=== PATIENT | male | born 1965 | race African-American/Black ===

== ENCOUNTER 2016-08-05 12:26 | Emergency (ER) | payer SELFPAY ==
[~2016-08-05] VITALS: Ht 190.5 cm; Wt 99.8 kg
--- NOTE | 2016-08-05 12:30 | NUR ---
PT BIBRA FROM A [employer]. PT IS C/O RT HIP PAIN S/P STEPPED ON A CURB WRONG AND TWISTED OUTWARDS. PT STATES FEELS SORE BUT THINK HE DID NOT BREAK ANYTHING AND FEELS LIKE STRUCTURE IS OK. PT HAD HIP REPLACEMENT A YEAR AGO. NO OBVIOUS DEFORMITY NOTED. AWAITING MD CRESOP.
--- NOTE | 2016-08-05 12:36 | NUR ---
CHANDU WALTON AT BEDSIDE FOR EVAL.
[2016-08-05] MEDS ORDERED: HYDROCODONE/APAP 10/325MG 1 EA TABLET ONE (12:38)
[2016-08-05] MEDS ORDERED: IBUPROFEN 600 MG TABLET PO ONE ×2 (12:38→13:00)
--- NOTE | 2016-08-05 12:45 | NUR ---
MEDICATED ORDERED. SEE EMAR.
[2016-08-05] MEDS ORDERED: HYDROCODONE/APAP 10/325MG 1 EA TABLET PO ONE (13:00)
--- NOTE | 2016-08-05 13:17 | NUR ---
Patient discharged to home in stable condition. Written and verbal after care instructions given. Patient verbalizes understanding of instruction.
[2016-08-05 13:21] VITALS: BP 132/76
== END 2016-08-05 13:22 | disposition home or self-care (01) ==
LOC: ER 12:29
DX: S76.011A Strain of muscle, fascia and tendon of right hip, initial encounter (principal); H54.0 Blindness, both eyes; F11.20 Opioid dependence, uncomplicated; F25.9 Schizoaffective disorder, unspecified; F17.200 Nicotine dependence, unspecified, uncomplicated; F32.9 Major depressive disorder, single episode, unspecified; Z88.0 Allergy status to penicillin; Z88.8 Allergy status to other drugs, medicaments and biological substances
CPT/HCPCS: A4606; Z7610

== ENCOUNTER 2017-04-04 11:33 | Emergency (ER) | payer MEDICARE, OTHER ==
[~2017-04-04] VITALS: Ht 190.5 cm; Wt 114.8 kg
--- NOTE | 2017-04-04 11:38 | NUR ---
PT BIBRA FROM A BUS STOP C/O HEADACHE AND BILAT HIP PAIN FOR THE PAST 4 DAYS. PT DENIES TRAUMA. STABLE VITAL. NO OTHER COMPLAINT. AWAITING MD CRESPO.
--- NOTE | 2017-04-04 11:46 | NUR ---
DR DRISCOLL AT BEDSIDE FOR EVAL.
[2017-04-04] MEDS ORDERED: diphenhydrAMINE HCL 50 MG/ML VIAL ONE (11:53)
--- NOTE | 2017-04-04 11:54 | NUR ---
RADIOLOGY AT BEDSIDE FOR PELVIC XRAY.
[2017-04-04] MEDS ORDERED: diphenhydrAMINE HCL 50 MG/ML VIAL IM ONE (12:00)
[2017-04-04] MEDS ORDERED: HYDROMORPHONE INJ 2 MG/ML DISP.SYRIN IM ONE ×2 (12:00→12:30)
--- NOTE | 2017-04-04 13:53 | NUR ---
AMBULATORY USING A CANE. D/C HOME W/ TAXI VOUCHER. STABLE CONDITION.
--- NOTE | 2017-04-04 13:53 | NUR ---
Aneudy guzman in [facility] - 04/04/17 at 1357 by [facility] AMBULATORY USING A CANE. D/C HOME W/ TAXI VOUCHER. STABLE CONDITION.
[2017-04-04 13:58] VITALS: BP 134/87
== END 2017-04-04 14:00 | disposition home or self-care (01) ==
LOC: ER 11:35
DX: M25.551 Pain in right hip (principal); M25.552 Pain in left hip; G89.4 Chronic pain syndrome; I10 Essential (primary) hypertension; J44.9 Chronic obstructive pulmonary disease, unspecified; F17.200 Nicotine dependence, unspecified, uncomplicated; Z88.0 Allergy status to penicillin; Z96.643 Presence of artificial hip joint, bilateral; G43.909 Migraine, unspecified, not intractable, without status migrainosus; Z88.6 Allergy status to analgesic agent; Z88.8 Allergy status to other drugs, medicaments and biological substances
CPT/HCPCS: 72170; 96372 ×3; 99284; A4606; J1170 ×2; J1200; Z7610

== ENCOUNTER 2017-09-04 11:50 | Emergency (ER) | payer MEDICARE, OTHER ==
[~2017-09-04] VITALS: Ht 190.5 cm; Wt 114.3 kg
[2017-09-04 11:50] VITALS: BP 137/88
--- NOTE | 2017-09-04 12:21 | NUR ---
artie nuclear medicine officer at bedside for eval.
[2017-09-04] MEDS ORDERED: HYDROMORPHONE INJ 2 MG/ML DISP.SYRIN ONE ×2 (12:27→13:26)
[2017-09-04] MEDS ORDERED: diphenhydrAMINE HCL 50 MG/ML VIAL ONE (12:27)
[2017-09-04] MEDS ORDERED: HYDROMORPHONE INJ 2 MG/ML DISP.SYRIN IM ONE (12:30)
[2017-09-04] MEDS ORDERED: diphenhydrAMINE HCL 50 MG/ML VIAL IM ONE (12:30)
--- NOTE | 2017-09-04 12:49 | NUR ---
radiology at bedside for hip xray.
[2017-09-04] MEDS ORDERED: HYDROCHLOROTHIAZIDE 25 MG (13:19)
[2017-09-04] MEDS ORDERED: HYDROCO/APAP TAB 10-325MG (13:19)
[2017-09-04] MEDS ORDERED: CARISOPRODOL 350MG TABLETS (13:19)
[2017-09-04] MEDS ORDERED: OXYCODONE 30 MG (13:19)
[2017-09-04] MEDS ORDERED: AMLODIPINE BESYLATE 10MG TABLE (13:19)
[2017-09-04] MEDS ORDERED: HYDROMORPHONE 1 MG/1 ML DISP.SYRIN IM ONE (13:30)
--- NOTE | 2017-09-04 14:26 | NUR ---
PT PROVIDED W/ TAXI VOUCHER. D/C HOME IN STABLE CONDITION.
== END 2017-09-04 14:27 | disposition home or self-care (01) ==
LOC: ER 11:51
DX: S39.012A Strain of muscle, fascia and tendon of lower back, initial encounter (principal); S79.811A Other specified injuries of right hip, initial encounter; G43.909 Migraine, unspecified, not intractable, without status migrainosus; G89.4 Chronic pain syndrome; I10 Essential (primary) hypertension; J44.9 Chronic obstructive pulmonary disease, unspecified; F25.1 Schizoaffective disorder, depressive type; F17.200 Nicotine dependence, unspecified, uncomplicated; Z60.2 Problems related to living alone; Z88.0 Allergy status to penicillin; Z98.890 Other specified postprocedural states; Z88.8 Allergy status to other drugs, medicaments and biological substances; X50.1XXA Overexertion from prolonged static or awkward postures, initial encounter; Y93.01 Activity, walking, marching and hiking; Y92.89 Other specified places as the place of occurrence of the external cause; Y99.8 Other external cause status
CPT/HCPCS: 73502; A4606; J1170; J1200; Z7610

== ENCOUNTER 2017-11-22 13:07 | Emergency (ER) | payer MEDICARE, OTHER ==
[~2017-11-22] VITALS: Ht 182.9 cm; Wt 88.5 kg
[~2017-11-22 13:07] MED LIST: AMLODIPINE BESYLATE 10MG TABLE; CARISOPRODOL 350MG TABLETS; HYDROCHLOROTHIAZIDE 25 MG; HYDROCO/APAP TAB 10-325MG; OXYCODONE 30 MG
[2017-11-22] MEDS ORDERED: IBUPROFEN 600 MG TABLET PO ONE ×2 (13:30→13:44)
[2017-11-22 14:22] VITALS: BP 128/78
== END 2017-11-22 14:23 | disposition home or self-care (01) ==
LOC: ER 13:13
DX: M25.551 Pain in right hip (principal); M25.552 Pain in left hip; G89.29 Other chronic pain; G43.909 Migraine, unspecified, not intractable, without status migrainosus; J44.9 Chronic obstructive pulmonary disease, unspecified; I10 Essential (primary) hypertension; F25.9 Schizoaffective disorder, unspecified; F32.9 Major depressive disorder, single episode, unspecified; F17.200 Nicotine dependence, unspecified, uncomplicated; Z98.890 Other specified postprocedural states; Z88.0 Allergy status to penicillin; Z88.5 Allergy status to narcotic agent; Z88.8 Allergy status to other drugs, medicaments and biological substances; Z60.2 Problems related to living alone
CPT/HCPCS: 99283; A4606; Z7610

== ENCOUNTER 2018-03-30 13:13 | Emergency (ER) | payer MEDICARE, OTHER ==
[~2018-03-30] VITALS: Ht 190.5 cm; Wt 113.4 kg
--- NOTE | 2018-03-30 13:15 | NUR ---
AAOX3, BIBRA 860 C/O BILATERAL CHRONIC HIP PAIN, DENIES RECENT FALL OR INJURY. NO ACUTE DISTRESS NOTED. SKIN IS WARM AND DRY. AWAITING MD FOR EVAL.
--- NOTE | 2018-03-30 13:49 | NUR ---
CALLED KRZYSZTOF TO HELP [phone]
--- NOTE | 2018-03-30 14:00 | NUR ---
KRZYSZTOF, ELECTION JUDGE AT FOR EVAL.
[2018-03-30] MEDS ORDERED: HYDROCODONE/APAP 5/325MG 1 EACH TABLET ONE (14:03)
[2018-03-30] MEDS: HYDROCODONE/APAP 5/325MG 1 EACH TABLET PO ONE (14:07)
[2018-03-30] MEDS: diphenhydrAMINE HCL 50 MG/ML VIAL IM ONE (14:07)
--- NOTE | 2018-03-30 14:19 | NUR ---
KLAUS received a call from Nba in ED requesting for KLAUS to assist the pt. Pt. is a 53 year old male came to [facility] ED complaining of hip pain. KLAUS met with pt. bedside. Pt. is alert and oriented x 4. Pt. is legally blind and states he resides with his brother at [address], [place] [address]. Pt. states he would like a ride back home. KLAUS inquired with pt. how did he get to [email or web address]], and pt. stated, " I came to visit a friend and go a ride." KLAUS informed pt. she will get a taxi voucher for pt. to be transported back home. Pt. confirmed with KLAUS that he did have a choi to his house. No other social service needs are requested at this time. KLAUS got a taxi voucher from nursing parking lot supervisor Clara and gave it to Nba in ER. KLAUS updated RN Wilfred regarding taxi transportation for the pt.
--- NOTE | 2018-03-30 15:35 | NUR ---
PT GIVEN TAXI VOUCHER AND JUICE. Patient discharged to home in stable condition. Written and verbal after care instructions given. Patient verbalizes understanding of instruction.
[2018-03-30 15:41] VITALS: BP 145/87
== END 2018-03-30 15:42 | disposition home or self-care (01) ==
LOC: ER 13:18
DX: G89.29 Other chronic pain (principal); M25.552 Pain in left hip; M25.551 Pain in right hip; H54.8 Legal blindness, as defined in USA; F25.9 Schizoaffective disorder, unspecified; J44.9 Chronic obstructive pulmonary disease, unspecified; I10 Essential (primary) hypertension; F32.9 Major depressive disorder, single episode, unspecified; F17.200 Nicotine dependence, unspecified, uncomplicated; Z76.5 Malingerer [conscious simulation]; Z60.2 Problems related to living alone; Z98.890 Other specified postprocedural states; Z88.0 Allergy status to penicillin; Z88.6 Allergy status to analgesic agent; Z88.8 Allergy status to other drugs, medicaments and biological substances; Z88.9 Allergy status to unspecified drugs, medicaments and biological substances

== ENCOUNTER 2019-01-18 18:36 | Inpatient (IN) | payer MEDICARE, OTHER ==
[~2019-01-18] VITALS: Ht 190.5 cm; Wt 112.9 kg
--- NOTE | 2019-01-18 18:55 | NUR ---
PT [facility]842 FROM [facility] FOR RLE PAIN, S/P GLF. +DEFORMITY NOTED. PT STATES HE GOT DIZZY AND FELL. PT AAOX4, VSS, BREATHING EVEN AND UNLABORED ON ROOM AIR W/ NAD. PT CONNECTED TO THE MONITOR AND POX.
[2019-01-18] MEDS ORDERED: HYDROMORPHONE 1 MG/1 ML DISP.SYRIN ONE ×3 (19:25→21:35)
[2019-01-18] MEDS ORDERED: HYDROMORPHONE INJ 0.5 MG/0.5 ML SYRINGE IM ONE ×2 (19:30→20:00)
--- NOTE | 2019-01-18 20:25 | NUR ---
CALLED [employer]. TOBACCO PACKER WAS PAGED.
--- NOTE | 2019-01-18 20:26 | NUR ---
CALLED HOUSE SUP FOR MS BED
[2019-01-18 20:38] LABS: BASOPHILS % (AUTO) 0.3 % (0.0-2.0); EOSINOPHILS % (AUTO) 0.4 % (0.0-6.0); HEMATOCRIT 52 % (39-51); HEMOGLOBIN 17.6 g/dL (13.5-17.5); LYMPHOCYTES # (AUTO) 1.4 /CMM (0.8-4.8); LYMPHOCYTES % (AUTO) 20.2 % (20.0-44.0); MEAN CORPUSCULAR HGB CONC 34 g/dl (31.0-36.0); MEAN CORPUSCULAR VOLUME 91 fL (80-96); MONOCYTES # (AUTO) 0.5 /CMM (0.1-1.30); MONOCYTES % (AUTO) 7.7 % (2.0-12.0); NEUTROPHILS # (AUTO) 4.8 /CMM (1.8-8.9); NEUTROPHILS % (AUTO) 71.4 % (43.0-81.0); PLATELET COUNT (AUTO) 173 /CMM (150-450); RED BLOOD CELL COUNT(AUTO) 5.76 MIL/uL (4.5-6.0); WHITE BLOOD COUNT (AUTO) 6.8 K/uL (4.3-11.0)
--- NOTE | 2019-01-18 21:02 | NUR ---
CALLED HOUSE SUP TO PAGE MIDLINE RN
--- NOTE | 2019-01-18 21:17 | NUR ---
MS [id number]
[2019-01-18 21:19] LABS: CALCIUM, SERUM 9.5 mg/dL (8.5-10.1); CREATININE 1.2 mg/dL (0.6-1.3); POTASSIUM 3.7 mmol/L (3.5-5.1)
[2019-01-18] MEDS ORDERED: CLONIDINE HCL 0.1 MG TABLET PO PRN (21:30)
[2019-01-18] MEDS ORDERED: HYDROCODONE/APAP 5/325MG 1 EACH TABLET PO PRN (21:30)
[2019-01-18] MEDS ORDERED: ACETAMINOPHEN 325 MG TABLET PO PRN (21:30)
[2019-01-18] MEDS ORDERED: MAG HYDROX/AL HYDROX/SIMETH 30 ML UDC PO PRN (21:30)
[2019-01-18] MEDS ORDERED: HYDROMORPHONE INJ 0.5 MG/0.5 ML SYRINGE IV ONE (21:30)
[2019-01-18] MEDS ORDERED: Z GUARD REMEDY 2 OZ OINT TP PRN (21:30)
[2019-01-18] MEDS ORDERED: MAGNESIUM HYDROXIDE 30 ML UDC PO PRN (21:30)
[2019-01-18] MEDS ORDERED: ONDANSETRON HCL/PF 4 MG/2 ML VIAL IVP PRN (21:30)
[2019-01-18] MEDS ORDERED: MORPHINE SULFATE INJ 2 MG/ML DISP.SYRIN IV PRN (21:30)
--- NOTE | 2019-01-18 21:40 | NUR ---
REPORT GIVEN TO ANDRZEJ MUNROE
[2019-01-18 21:50] VITALS: BP 140/79
--- NOTE | 2019-01-18 21:55 | NUR ---
MS RECORDS ADMINISTRATOR NOTES PATIENT CAME TO UNIT FROM ER VIA GURNEY. PATIENT IS ALERT AND ORIENTED. BREATHING EVEN AND UNLABORED. C/O R) ANKLE/LEG PAIN, 8. PATIENT HAS NO IV ACCESS, AWAITING FOR MIDLINE NURSE. ORIENTED TO CALL LIGHT, PLACE WITHIN EASY REACH. BED IN LOWEST, LOCKED POSITION, BED ALARM ON. ENCOURAGED TO CALL FOR ASSISTANCE. BELONGINGS CHECKED BY KARLI HALL. HOME MEDICATIONS PUT IN, DR. KERNS INFORMED FOR MED RECONCILIATION. WILL CONTINUE TO MONITOR ACCORDINGLY
[2019-01-18] MEDS ORDERED: DIVA500T2 PO (22:09)
[2019-01-18] MEDS ORDERED: ALPR2TAB2 PO (22:11)
[2019-01-18] MEDS ORDERED: QUET400T PO (22:11)
[2019-01-18] MEDS ORDERED: DIPH-530 PO (22:13)
[2019-01-18] MEDS ORDERED: OXYC30TA2 PO (22:13)
[2019-01-18] MEDS ORDERED: TEMA30CA5 PO (22:13)
--- NOTE | 2019-01-18 22:28 | NUR ---
RN NOTES TELEPHONE ORDER RECEIVED FROM DR. KERNS. PATIENT IS REGULAR DIET FOR NOW, NPO POST MIDNIGHT. NOTED AND CARRIED OUT
--- NOTE | 2019-01-18 22:33 | NUR ---
RN NOTES CALLED NURSING WATER ANALYST DIALLO GASCA MIDLINE PLACEMENT. PER WATER ANALYST, MIDLINERS DID NOT REPLY YET.
--- NOTE | 2019-01-18 22:43 | NUR ---
RN NOTES NURSING WASTE HANDLING TECHNICIAN CALLED. MIDLINE RN WILL BE HERE IN AN HOUR
--- NOTE | 2019-01-19 00:09 | NUR ---
RN NOTES PATIENT STILL C/O PAIN ON R) ANKLE. DR. KERNS MADE AWARE. RECEIVED A TELEPHONE ORDER OF DILAUDID 1MG IM X 1. NOTED AND CARRIED OUT
[2019-01-19] MEDS ORDERED: HYDROMORPHONE INJ 0.5 MG/0.5 ML SYRINGE IM ONE (00:30)
[2019-01-19] MEDS ORDERED: HYDROMORPHONE 1 MG/1 ML DISP.SYRIN IM ONE ×2 (00:30→05:30)
--- NOTE | 2019-01-19 00:53 | NUR ---
RN NOTES PATIENT STATED [facility] 2 DAYS A[facility]. PER [facility] PROTOCOL, REFER PATIENT FOR PSYCH CONSULT. DR. KERNS INFORMED. RECEIVED ORDER FOR PSYCH CONSULT. ORDERS NOTED AND CARRIED OUT. FACE SHEET FAXED TO [employer]
--- NOTE | 2019-01-19 05:23 | NUR ---
RN NOTES PATIENT C/O AGAIN OF R) ANKLE PAIN, 11/17. PATIENT REQUESTING FOR DILAUDID. DR. KERNS INFORMED. TELEPHONE ORDER RECEIVED OF DILAUDID 1MG IM X 1. DIET ORDER ALSO CLARIFIED: NPO EXCEPT MEDS. NOTED AND CARRIED OUT.
--- NOTE | 2019-01-19 06:56 | NUR ---
MS RN CLOSING NOTES PATIENT RESTING IN BED. NO COMPLAINTS OF PAIN AT THIS TIME. ALL NEEDS ATTENDED. STILL WAITING MIDLINE INSERTION. NO ACUTE CHANGES OVERNIGHT. SAFETY MEASURES IN PLACE. CALL LIGHT WITHIN REACH. BED IN LOW, LOCKED POSITION. WILL ENDORSE ELYSE TO ONCOMING RN
--- NOTE | 2019-01-19 07:10 | NUR ---
RN OPENING NOTES RECEIVED PATIENT IN BED RESTING. A/OX3, ABLE TO MAKE NEEDS KNOWN. PATIENT IS LEGALLY BLIND. NOT IN ANY FORM OF DISTRESS. NO SOB, TOLERATING ROOM AIR. COMPLAINTS OF PAIN ON RIGHT ANKLE, MEDICATED AN HOUR AGO PER PATIENT, WILL GIVE PAIN MEDS ORDERED. NO IV ACCESS AT THIS TIME, AWAITING FOR MIDLINE INSERTION. KEPT PATIENT SAFE AND COMFORTABLE. BED IN LOW/LOCKED POSITION, SIDRAILS UPX2, BED ALARM ON, CALL LIGHT IN REACH. WILL CONTINUE TO MONIOTR ACCORDINGLY
[2019-01-19 07:50] VITALS: BP 126/73
[2019-01-19] MEDS: DIVALPROEX SODIUM 500 MG TABLET.DR PO SCH (08:34)
[2019-01-19] MEDS: ALPRAZOLAM 1 MG TABLET PO SCH ×3 (08:34→17:24)
[2019-01-19] MEDS: AMLODIPINE BESYLATE 5 MG TABLET PO SCH (08:36)
[2019-01-19] MEDS ORDERED: HYDROCHLOROTHIAZIDE 25 MG TABLET PO SCH (09:00)
[2019-01-19] MEDS ORDERED: MORPHINE SULFATE INJ 2 MG/ML DISP.SYRIN IM PRN (09:30)
[2019-01-19] MEDS: oxyCODONE IR immediate release 5 MG PO PRN ×2 (10:13→18:24)
[2019-01-19] MEDS: diphenhydrAMINE HCL 50 MG CAPSULE PO SCH ×2 (12:29→18:20)
[2019-01-19] MEDS: MORPHINE SULFATE INJ 2 MG/ML DISP.SYRIN IM PRN ×2 (12:33→17:30)
[2019-01-19] MEDS: IV NS 0.9% 1,000 ML IV PRN (14:11)
[2019-01-19 14:33] LABS: BASOPHILS % (AUTO) 0.3 % (0.0-2.0); EOSINOPHILS % (AUTO) 2.3 % (0.0-6.0); HEMATOCRIT 48 % (39-51); HEMOGLOBIN 16.1 g/dL (13.5-17.5); LYMPHOCYTES % (AUTO) 41.6 % (20.0-44.0); MEAN CORPUSCULAR HGB CONC 34 g/dl (31.0-36.0); MEAN CORPUSCULAR VOLUME 91 fL (80-96); MONOCYTES % (AUTO) 13.5 % (2.0-12.0); NEUTROPHILS # (AUTO) 3.1 /CMM (1.8-8.9); NEUTROPHILS % (AUTO) 42.3 % (43.0-81.0); PLATELET COUNT (AUTO) 162 /CMM (150-450); RED BLOOD CELL COUNT(AUTO) 5.28 MIL/uL (4.5-6.0); WHITE BLOOD COUNT (AUTO) 7.3 K/uL (4.3-11.0)
[2019-01-19 14:45] LABS: CALCIUM, SERUM 8.6 mg/dL (8.5-10.1); CREATININE 0.9 mg/dL (0.6-1.3); MAGNESIUM 2.2 mg/dL (1.8-2.4); PHOSPHORUS 3.6 mg/dL (2.5-4.9); POTASSIUM 3.8 mmol/L (3.5-5.1)
--- NOTE | 2019-01-19 15:52 | NUR ---
rn notes Called Dr Govea to follow up if patient will have surgery today. Per MD, he will see the patient today and will do surgery tomorrow. Relayed message to Luis Manuel Bonilla DNP. new orders to placed patient on Regular diet and Npo post midnight. orders noted and will carry out
[2019-01-19 16:00] VITALS: BP 115/85
--- NOTE | 2019-01-19 19:15 | NUR ---
MS RN NOTES RECEIVED ON BED DDOZING OFF BUT AROUSABLE TO VERBAL STMULI.BREATHING REGULAR,NOT IN ANY FORM OF DISTRESS.WITH IVF NS 100ML/HR RATE INFUSING ON LEFT UPPER ARM MIDLINE,VIA IV PUMP.RIGHT ANKLE FRACTURE WITH DRESSING INTACT AND DRY.PATIENT IS LEGALLY BLIND BUT ABLE TO SIGN CONSENT FOR THE ORIF RIGHT DISTAL TIBIA AND FIBULA.INSTRUCTED NPO POST MIDNIGHT,CALL LIGHT IN REACH,NEEDS ANTICIPATED.
--- NOTE | 2019-01-19 19:23 | NUR ---
RN CLOSING NOTES PATIENT IN STABLE CONDITION. NO SIGNIFICANT CHANGE OF CONDITION DURING THE SHIFT. ALL NEEDS ATTENDED AND PROVIDED. ALL DUE MEDS GIVEN ORDERED. KEPT PATIENT SAFE AND COMFORTABLE. BED IN LOW/LOCKED POSITION. SIDERAILS UPX2, CALL LIGHT IN REACH. ENDORSED TO NIGHT RN FOR ELYSE.
[2019-01-19 20:00] VITALS: BP 139/81
--- NOTE | 2019-01-19 22:00 | NUR ---
MS RN NOTES DUE PO MEDS ADMINISTERED,TAKEN WELL.
--- NOTE | 2019-01-19 22:10 | NUR ---
MS RN NOTES CONSENT SIGNED BY PATIENT THIS TIME
[2019-01-19] MEDS: TEMAZEPAM 15 MG CAPSULE PO SCH (22:20)
[2019-01-19] MEDS: QUETIAPINE FUMARATE 100 MG TABLET PO SCH (22:21)
[2019-01-20] MEDS: IV NS 0.9% 1,000 ML IV PRN
--- NOTE | 2019-01-20 | NUR ---
MS RN NOTES NPO STARTED,PITCHER OF WATER REMOVED
[2019-01-20] MEDS: diphenhydrAMINE HCL 50 MG CAPSULE PO SCH ×4 (05:03→18:00)
--- NOTE | 2019-01-20 06:14 | NUR ---
MS RN NOTES SLEPT WELL WITH RESTORIL AND SEROQUEL,KEPT NPO FOR SURGERY TODAY BUT NOT ON SCHEDULE PER CHARGE NURSE LAURA.ECHO 55-60%EF.IN NO ACUTE DISTRESS.CONSENT SIGNED,CHECKLIST DONE.WILL ENDORSE TO DAY NURSE FOR ELYSE.
[2019-01-20] MEDS: MORPHINE SULFATE INJ 2 MG/ML DISP.SYRIN IM PRN (06:32)
--- NOTE | 2019-01-20 06:32 | NUR ---
MS RN NOTES PAIN MANAGEMENT C/O RIGHT FOOT PAIN 8-9/10 ON PAIN SCALE.MEDICATED WITH MORPHINE 4MG IM GIVEN ON RIGHT DELTOID PRN FOR SEVERE PAIN.
--- NOTE | 2019-01-20 07:32 | NUR ---
RN OPENING NOTES RECEIVED PATIENT IN BED RESTING COMFORTABLY IN MODERATE HIGH BACK REST. A/OX3, PATIENT IS LEGALLY BLIND. NO SIGNS OF DISTRESS NOTED AT THIS TIME. IV FLUIDS ON ROSA MARIA MIDLINE WITH NS RUNNING @100ML/HR. PATENT AND INTACT. SAFETY MEASURES IN PLACE, BED IN LOW/LOCKED POSITION, SIDRAILS UPX2, BED ALARM ON, CALL LIGHT IN REACH. WILL CONTINUE TO MONITOR.
[2019-01-20 07:36] LABS: CALCIUM, SERUM 8.7 mg/dL (8.5-10.1); POTASSIUM 3.8 mmol/L (3.5-5.1)
[2019-01-20 07:42] LABS: BASOPHILS % (AUTO) 0.5 % (0.0-2.0); EOSINOPHILS % (AUTO) 4.5 % (0.0-6.0); HEMATOCRIT 48 % (39-51); LYMPHOCYTES # (AUTO) 2.3 /CMM (0.8-4.8); LYMPHOCYTES % (AUTO) 34.6 % (20.0-44.0); MEAN CORPUSCULAR HGB CONC 33 g/dl (31.0-36.0); MEAN CORPUSCULAR VOLUME 91 fL (80-96); MONOCYTES # (AUTO) 0.9 /CMM (0.1-1.30); MONOCYTES % (AUTO) 13.4 % (2.0-12.0); NEUTROPHILS # (AUTO) 3.1 /CMM (1.8-8.9); PLATELET COUNT (AUTO) 158 /CMM (150-450); RED BLOOD CELL COUNT(AUTO) 5.26 MIL/uL (4.5-6.0); WHITE BLOOD COUNT (AUTO) 6.6 K/uL (4.3-11.0)
[2019-01-20 08:00] VITALS: BP 124/79
[2019-01-20] MEDS: AMLODIPINE BESYLATE 5 MG TABLET PO SCH (09:00)
[2019-01-20] MEDS: ALPRAZOLAM 1 MG TABLET PO SCH ×3 (09:00→17:00)
[2019-01-20] MEDS: ENOXAPARIN SODIUM 40 MG/0.4 ML DISP.SYRIN SQ SCH (09:00)
[2019-01-20] MEDS: DIVALPROEX SODIUM 500 MG TABLET.DR PO SCH (09:00)
[2019-01-20] MEDS: HYDROMORPHONE 1 MG/1 ML DISP.SYRIN IV PRN ×2 (09:41→22:55)
[2019-01-20] MEDS: oxyCODONE IR immediate release 5 MG PO PRN (13:20)
--- NOTE | 2019-01-20 15:00 | NUR ---
RN NOTES PATIENT WAS PICKED UP BY HOSPITAL STAFF VIA HOSPITAL BED, GOING TO SURGERY. PATIENT IN STABLE CONDITION WITH NO SIGNS OF DISTRESS. V/S WNL.
[2019-01-20] MEDS ORDERED: CLINDAMYCIN 900 MG/6 ML VIAL ONE (15:14)
[2019-01-20] MEDS ORDERED: MIDAZOLAM HCL 2 MG/2ML VIAL ONE (15:14)
[2019-01-20] MEDS ORDERED: HYDROMORPHONE INJ 2 MG/ML DISP.SYRIN ONE (15:14)
[2019-01-20] MEDS ORDERED: BACITRACIN 50000 UNITS/VIAL ONE (16:55)
[2019-01-20] MEDS ORDERED: VANCOMYCIN 1 GM VIAL ONE (17:39)
[2019-01-20] MEDS ORDERED: FENTANYL PF 100MCG/2ML AMPUL ONE (19:27)
--- NOTE | 2019-01-20 19:58 | NUR ---
MS/RN NOTES RECEIVED A CALL FROM OPERATING ROOM THAT PATIENT WILL BE SENT BACK TO [facility] FLOOR.
[2019-01-20 20:00] VITALS: BP_SYST 144; BP_SYST 159; BP_DIAS 87; BP_DIAS 96
--- NOTE | 2019-01-20 20:00 | NUR ---
MS/RN NOTES PATIENT RECEIVED FROM OR AND CHECKED VITAL SIGNS EVERY 15MN, EVERY 30 MINUTES AND EVERY HOUR., ARRIVED WITH ROSA MARIA MIDLINE, USING URINAL.
--- NOTE | 2019-01-20 20:05 | NUR ---
MS/RN NOTES RECEIVED PATIENT IN BED TRANSFERED FROM OPERATING ROOM. RECEIVED REPORT FROM RN PAT OF PATIENT S/P PROCEDURE BY DR. AMBRIZ, RIGHT LOWER LEG CAST DRESSING DRY AND INTACT, PATIENT REQUIRE OXYGEN VIA NC AT 3 LITER WITH OXYGENATION OF 96% B/P 144/96, TEMPERATURE AT 99.1 DEG F, R- 20 PULSE 83, WILL MONITOR KEPT COOL. BED LOCKED, CALL LIGHTS WITHIN REACH.
[2019-01-20 20:15] VITALS: BP 149/86
--- NOTE | 2019-01-20 20:18 | NUR ---
MS/RN NOTES RECEIVED ORDER TO CONTINOUE PREVIOUS ORDER. NORCO 10-325 MG PO NEEDED, PHYSICAL THERAPY IN AM ON IV CLINDAMYCIN 900MG IV EVERY 12 HOURS, LAST DOSE GIVEN 1644 PREOP. FOR 3 DOSES.
[2019-01-20 20:30] VITALS: BP 139/92
[2019-01-20 21:00] VITALS: BP_SYST 144; BP_SYST 152; BP_DIAS 90; BP_DIAS 97
[2019-01-20 22:00] VITALS: BP 113/61
[2019-01-20] MEDS: QUETIAPINE FUMARATE 100 MG TABLET PO SCH (22:00)
[2019-01-20] MEDS: TEMAZEPAM 15 MG CAPSULE PO SCH (22:00)
[2019-01-20] MEDS ORDERED: HYDROCODONE/APAP 10/325MG 1 EA TABLET PO PRN (22:30)
[2019-01-20] MEDS ORDERED: MORPHINE SULFATE INJ 4 MG/ML DISP.SYRIN IV PRN (22:30)
[2019-01-21] MEDS ORDERED: CLINDAMYCIN 900 MG in IV D5W 50 ML IV SCH ×2 (01:00→05:00)
[2019-01-21] MEDS: diphenhydrAMINE HCL 50 MG CAPSULE PO SCH ×4 (01:01→18:37)
[2019-01-21] MEDS: oxyCODONE IR immediate release 5 MG PO PRN ×3 (01:02→14:18)
[2019-01-21] MEDS: IV NS 0.9% 1,000 ML IV PRN (04:07)
[2019-01-21] MEDS: HYDROMORPHONE 1 MG/1 ML DISP.SYRIN IV PRN ×4 (04:29→23:16)
--- NOTE | 2019-01-21 04:36 | NUR ---
MS/RN NOTES PATIENT AWAKEN FROM SLEEP, MOANING, GUARDING, AND GRIMACING. IV DILAUDID 1MG PER MD ORDER. WILL MONITOR.
--- NOTE | 2019-01-21 06:00 | NUR ---
MS/RN CLOSING NOTES PATIENT ALERT, ORIENTED X3, LEGALLY BLIND, ABLE TO VERBALIZE NEEDS, RESPIRATIONS EVEN AND UNLABORED. SKIN WARM TO TOUCH, RIGHT FOOD WITH DRESSING/CAST, PROVIDED SNACKS PREFERED TO DRINK JUICES, ON PAIN MANAGEMENT MONITOIRNG AND MEDICATION. KEPT COMFORTABLE, IV MIDLINE ON LEFT UPPER ARM ABLE TO INFUSE ANTIBIOTIC AND FLUIDS/ BED LOCKED, CALL LIGHTS WITHIN REACH. USES URINAL. WILL ENDORSE TO AM RN FOR ELYSE WITH LOW TOLERANCE FOR PAIN THAT REQUIRE BREAK THROUGH PAIN.
--- NOTE | 2019-01-21 06:19 | NUR ---
ms/rn notes patient with moaning screaming and reported pain severe in right leg, break trough pain to give will monitor pain relief.
[2019-01-21 08:00] VITALS: BP 128/71
[2019-01-21] MEDS: ENOXAPARIN SODIUM 40 MG/0.4 ML DISP.SYRIN SQ SCH (10:05)
[2019-01-21] MEDS: ALPRAZOLAM 1 MG TABLET PO SCH ×3 (10:06→17:25)
[2019-01-21] MEDS: AMLODIPINE BESYLATE 5 MG TABLET PO SCH (10:07)
[2019-01-21] MEDS: DIVALPROEX SODIUM 500 MG TABLET.DR PO SCH (10:07)
[2019-01-21 14:40] LABS: BASOPHILS # (AUTO) 0.2 /CMM (0.0-0.2); BASOPHILS % (AUTO) 2.4 % (0.0-2.0); EOSINOPHILS % (AUTO) 1.6 % (0.0-6.0); HEMATOCRIT 40 % (39-51); HEMOGLOBIN 13.1 g/dL (13.5-17.5); LYMPHOCYTES % (AUTO) 11.7 % (20.0-44.0); MEAN CORPUSCULAR HGB CONC 33 g/dl (31.0-36.0); MEAN CORPUSCULAR VOLUME 93 fL (80-96); MONOCYTES # (AUTO) 0.5 /CMM (0.1-1.30); MONOCYTES % (AUTO) 5.8 % (2.0-12.0); NEUTROPHILS # (AUTO) 6.9 /CMM (1.8-8.9); NEUTROPHILS % (AUTO) 78.5 % (43.0-81.0); PLATELET COUNT (AUTO) 122 /CMM (150-450); RED BLOOD CELL COUNT(AUTO) 4.29 MIL/uL (4.5-6.0); WHITE BLOOD COUNT (AUTO) 8.8 K/uL (4.3-11.0)
[2019-01-21 14:46] LABS: CALCIUM, SERUM 8.1 mg/dL (8.5-10.1); CREATININE 0.7 mg/dL (0.6-1.3); POTASSIUM 4.4 mmol/L (3.5-5.1)
[2019-01-21 16:00] VITALS: BP 115/69
[2019-01-21] MEDS: CLINDAMYCIN 900 MG in IV D5W 50 ML IV SCH (17:00)
--- NOTE | 2019-01-21 17:00 | NUR ---
ROSA MARIA MIDLINE INTACT,ABLE TO DRAW BLOOD FROM MIDLINE.
--- NOTE | 2019-01-21 19:00 | NUR ---
MEDICATED X 2 WITH DILAUDID WITH GOOD EFFECT.HAD OXY-IR X1.PT. DEVOPS CONSULTANT LIGHT FREQ.NO STATUS CHANGE.DUE TO DROWSINESS 1300 XANAX WITHELD.
--- NOTE | 2019-01-21 19:15 | NUR ---
MS RN NOTES RECEIVED ON BED A/O X3,LEGALLY BLIND BUT ABLE TO FEED HIMSELF.S/P ORIF OF RIGHT ANKLE DISTAL TIBIA AND FIBULA,DRESSING INTACT AND DRY.WITH LEFT UPPER ARM MIDLINE INTACT AND PATENT.REFUSED IVF IVF PER REPORT.WILL CONTINUE TO MONITOR FOR PAIN.CALL LIGHT IN REACH,NEEDS ANTICIPATED.
[2019-01-21 20:00] VITALS: BP 108/74
[2019-01-21] MEDS: QUETIAPINE FUMARATE 100 MG TABLET PO SCH (22:20)
[2019-01-21] MEDS: TEMAZEPAM 15 MG CAPSULE PO SCH (22:20)
--- NOTE | 2019-01-21 23:16 | NUR ---
MS RN NOTES PAIN MANAGEMENT C/O PAIN ON RIGHT FOOT 8/10 ON PAIN SCALE,MEDICATED WITH DILAUDID 1MG IM PER PATIENT REQUEST,REFUSED TO GIVEN IT IV.PER DAY SHIFT NURSE LORNA RollinsHOSPITALIST DELTA DE [place] TO GIVE IM BUT HE WILL NOT CHANGE THE ORDER.
[2019-01-22] MEDS: diphenhydrAMINE HCL 50 MG CAPSULE PO SCH ×4 (00:07→18:00)
[2019-01-22] MEDS: oxyCODONE IR immediate release 5 MG PO PRN ×2 (01:51→18:43)
--- NOTE | 2019-01-22 01:51 | NUR ---
MS RN NOTES PAIN MANAGEMENT AWAKE,TRIED TO SIT UP TO PEE.C/O PAIN ON THE RIGHT FOOT,MEDICATED WITH OXY IR 30MG PO ORDERED PRN FOR BREAK THRU PAIN.
[2019-01-22] MEDS: IV NS 0.9% 1,000 ML IV PRN ×2 (04:45→22:34)
[2019-01-22] MEDS: CLINDAMYCIN 900 MG in IV D5W 50 ML IV SCH (04:45)
--- NOTE | 2019-01-22 06:00 | NUR ---
MS RN NOTES APPEARS SO DROWSY,BENADRYL 50MG PO HELD THIS TIME.
--- NOTE | 2019-01-22 06:08 | NUR ---
MS RN NOTES SLEEPING,AROUSABLE TO VERBAL STIMULI.BREATHING REGULAR,NOT IN NAY FORM OF DISTRESS.IVF IN PROGRESS ON ROSA MARIA MIDLINE.DRESSING TO RIGHT LOWER LEG INTACT AND DRY.PAIN MANAGEMENT EFFECTIVE.IN NO ACUTE DISTRESS.WILL ENDORSE TO DAY NURSE FOR ELYSE.
--- NOTE | 2019-01-22 07:29 | NUR ---
MS RN NOTES RECEIVED PT IN BED ASLEEP. ABLE TO AROUSE WHEN NAME CALLED. lEFT UPPER ARM MIDLINE INTACT /PATENT. NO SOB OR DISCOMFORT NOTED AT THIS TIME. CALL LIGHT WITHIN REACH BED AT THE LOWEST POSITION. WILL CONTINUE TO MONITOR.
[2019-01-22 08:00] VITALS: BP 120/70
[2019-01-22] MEDS: DIVALPROEX SODIUM 500 MG TABLET.DR PO SCH (09:15)
[2019-01-22] MEDS: AMLODIPINE BESYLATE 5 MG TABLET PO SCH (09:16)
[2019-01-22] MEDS: ALPRAZOLAM 1 MG TABLET PO SCH ×3 (09:16→17:15)
[2019-01-22] MEDS: ENOXAPARIN SODIUM 40 MG/0.4 ML DISP.SYRIN SQ SCH (09:20)
[2019-01-22 09:21] LABS: CALCIUM, SERUM 8.8 mg/dL (8.5-10.1); CREATININE 0.8 mg/dL (0.6-1.3); POTASSIUM 4.9 mmol/L (3.5-5.1)
[2019-01-22 09:38] LABS: BASOPHILS % (AUTO) 0.1 % (0.0-2.0); EOSINOPHILS % (AUTO) 1.9 % (0.0-6.0); HEMATOCRIT 43 % (39-51); HEMOGLOBIN 13.9 g/dL (13.5-17.5); LYMPHOCYTES # (AUTO) 2.3 /CMM (0.8-4.8); LYMPHOCYTES % (AUTO) 29.7 % (20.0-44.0); MEAN CORPUSCULAR HGB CONC 32 g/dl (31.0-36.0); MEAN CORPUSCULAR VOLUME 95 fL (80-96); MONOCYTES # (AUTO) 1.3 /CMM (0.1-1.30); MONOCYTES % (AUTO) 16.9 % (2.0-12.0); NEUTROPHILS # (AUTO) 4.1 /CMM (1.8-8.9); NEUTROPHILS % (AUTO) 51.4 % (43.0-81.0); PLATELET COUNT (AUTO) 132 /CMM (150-450); RED BLOOD CELL COUNT(AUTO) 4.55 MIL/uL (4.5-6.0); WHITE BLOOD COUNT (AUTO) 7.9 K/uL (4.3-11.0)
[2019-01-22] MEDS ORDERED: HYDROMORPHONE 1 MG/1 ML DISP.SYRIN IM PRN ×2 (12:00→13:00)
--- NOTE | 2019-01-22 12:04 | NUR ---
MS RN NOTES BENADRYL NOT GIVEN. PATIENT IS DROWSY.
[2019-01-22] MEDS: HYDROMORPHONE 1 MG/1 ML DISP.SYRIN IM PRN ×2 (12:06→16:42)
--- NOTE | 2019-01-22 14:37 | NUR ---
MS DONNELLY NOTES WASTED 0.5 MG OUT OF 1 MG OF DILAUDID. WITNESS BY ANDRZEJ MARTIN. PHARMACY NOTIFIED. Addendum: 01/22/19 at 1504 by PETER AMBRIZ RN MS/ANDRZEJ NOTE WITNESSED WASTED OF 0.5 MG OUT OF 1 MG OF DILAUDID.
[2019-01-22 16:00] VITALS: BP 136/75
--- NOTE | 2019-01-22 19:10 | NUR ---
MS RN NOTES RECEIVED PT IN BED A/O X3 AND LEGALLY BLIND. PT S/P ORIF OF RIGHT ANKLE DISTAL TIBIA AND FIBULA WITH DRESSING INTACT AND DRY. PT NOTED WITH LEFT UPPER ARM MIDLINE INTACT AND PATENT. SAFETY MEASURES IN PLACE WITH BED IN LOWEST LOCKED POSITION WITH SIDE RAILS UP X2. CALL LIGHT WITHIN REACH. WILL CONTINUE TO MONITOR.
--- NOTE | 2019-01-22 19:15 | NUR ---
MS RN NOTES PATIENT IN BED,A/OX3-4. COMPLAINS OF PAIN, PAIN MEDS GIVEN EARLIER AND EXPLAINED TO GIVE TIME TO MED TO HAVE IT'S EFFECTIVENESS. ALL NEEDS ATTENDED. NO SOB NOTED AT THIS TIME. CALL LIGHT WITHIN REACH, BED LOCKED AT THE LOWEST POSITION. ENDORSED TO HOME ENERGY INSPECTOR NURSE FOR ELYSE.
[2019-01-22 20:04] VITALS: BP 121/71
[2019-01-22] MEDS: QUETIAPINE FUMARATE 100 MG TABLET PO SCH (22:00)
[2019-01-22] MEDS: TEMAZEPAM 15 MG CAPSULE PO SCH (22:00)
--- NOTE | 2019-01-23 00:08 | NUR ---
RECEIVED PATIENT ASLEEP IN BED WITH NO DISTRESS NOTED. CALL LIGHT WITHIN REACH. PERIPHERAL LINE INTACT AND PATENT. ROOM FREE OF CLUTTER AND BELONGINGS KEPT NEAR BEDSIDE. BED ALARM ON AND FUNCTIONING PROPERLY. WILL CONTINUE TO MONITOR
[2019-01-23] MEDS: HYDROMORPHONE 1 MG/1 ML DISP.SYRIN IM PRN ×3 (02:30→21:44)
[2019-01-23] MEDS: oxyCODONE IR immediate release 5 MG PO PRN ×2 (03:07→12:27)
[2019-01-23] MEDS: diphenhydrAMINE HCL 50 MG CAPSULE PO SCH ×4 (06:10→17:39)
--- NOTE | 2019-01-23 06:12 | NUR ---
MS RN NOTES PATIENT ASLEEP IN BED WITH NO DISTRESS NOTED. CALL LIGHT WITHIN REACH. NO FURTHER C/O PAIN OR DISCOMFORT. ALL DUE MEDS GIVEN ORDERED WITH NO ASE. MID LINE INTACT AND PATENT. ROOM FREE OF CLUTTER AND BELONGINGS KEPT NEAR BEDSIDE. WILL CONTINUE TO MONITOR.
[2019-01-23 08:00] VITALS: BP 149/76
--- NOTE | 2019-01-23 08:00 | NUR ---
MS RN NOTES PATIENT IN BED SLEEPING. NO SOB OR ACUTE DISTRESS NOTED. PATIENT WITH MIDLINE ON LEFT UPPER ARM RUNNING PRESCRIBED FLUIDS. BED IN LOW LOCKED POSITION, CALL LIGHT WITHIN REACH.
[2019-01-23] MEDS: ALPRAZOLAM 1 MG TABLET PO SCH ×3 (09:55→17:39)
[2019-01-23] MEDS: DIVALPROEX SODIUM 500 MG TABLET.DR PO SCH (09:55)
[2019-01-23] MEDS: AMLODIPINE BESYLATE 5 MG TABLET PO SCH (09:55)
[2019-01-23] MEDS: ENOXAPARIN SODIUM 40 MG/0.4 ML DISP.SYRIN SQ SCH (09:56)
[2019-01-23 16:00] VITALS: BP 126/62
--- NOTE | 2019-01-23 18:00 | NUR ---
MS RN NOTES PATIENT SCHEDULED FOR DISCHARGE TO [facility] AFTER 1800. REPORT GIVEN TO MASOUD DONNELLY AT [facility]. PATIENT NOTIFIED OF DISCHARGE.VOICE MAIL LEFT TO NEXT OF KIN. ALL BELONGINGS ACCOUNTED FOR. DISCHARGE INSTRUCTIONS PROVIDED. WAITING FOR TRANSPORTATIONS. DISCHARGE PAPERS SIGNED BY PATIENT AND WITNESSED BY TWO NURSES DUE TO PATIENT BEING LEGALLY BLIND. WILL ENDORSE DISCHARGE TO PM SHIFT.
--- NOTE | 2019-01-23 19:00 | NUR ---
rn ms notes received patient in bed awake alert and oriented x3 ,able to make needs known respirations even and unlabored, left upper arm midline intact and patent, patient scheduled for discharge awaiting transportation, safety precautions in place, will continue to monitor.
[2019-01-23 20:00] VITALS: BP 150/81
--- NOTE | 2019-01-23 21:44 | NUR ---
rn ms notes pt complaint of pain to ankle and leg / requested for dilaudid prn dilaudid given as ordered as ordered 0.5mg rest wasted and witness with another rn , sandy cm.
[2019-01-23 22:07] VITALS: BP 148/96
--- NOTE | 2019-01-23 22:07 | NUR ---
rn ms discharge notes patient in bed awake alert and oriented x3 ,able to make needs known respirations even and unlabored, left upper arm midline removed for discharge id band removed, picked by via ambulance [facility], vs wnl , discharge paper work given ,belongings given to transportation safety precautions in place, left in stable condition , [facility] made aware of patient.
== END 2019-01-23 22:15 | DRG 313 ==
LOC: ER 18:40 → MED 21:30
PROVIDERS: ADMIT Internal Medicine; ATTEND Nurse Practitioner Acute Care
DX: S82.231A Displaced oblique fracture of shaft of right tibia, initial encounter for closed fracture (principal); F11.20 Opioid dependence, uncomplicated; F25.9 Schizoaffective disorder, unspecified; F32.9 Major depressive disorder, single episode, unspecified; W01.0XXA Fall on same level from slipping, tripping and stumbling without subsequent striking against object, initial encounter; S82.431A Displaced oblique fracture of shaft of right fibula, initial encounter for closed fracture; Y92.9 Unspecified place or not applicable; H54.8 Legal blindness, as defined in USA; I10 Essential (primary) hypertension; M19.90 Unspecified osteoarthritis, unspecified site; G89.4 Chronic pain syndrome; F41.9 Anxiety disorder, unspecified; F12.90 Cannabis use, unspecified, uncomplicated; J44.9 Chronic obstructive pulmonary disease, unspecified; E66.9 Obesity, unspecified; Z68.31 Body mass index [BMI] 31.0-31.9, adult; G43.909 Migraine, unspecified, not intractable, without status migrainosus
CPT/HCPCS: 36415; 71045-TC; 73590-TC; 73600-TC; 73620-TC; 80048-TC; 83735-TC; 84100-TC; 85025-TC; 85730-TC; 87081-TC; 93307-TC; 97116-TC; 97530-TC; C1713; G0378; J1100; J1170; J1650; J2250; J2270; J2405; J2704; J3010; J3370; J3490; J7030; J7060; Q0163

== ENCOUNTER 2019-02-10 17:39 | Emergency (ER) | payer MEDICARE, OTHER ==
[~2019-02-10] VITALS: Ht 200.7 cm; Wt 112.5 kg
[~2019-02-10 17:39] MED LIST changes: +ALPR2TAB2 PO; +DIPH-530 PO; +DIVA500T2 PO; +OXYC30TA2 PO; +QUET400T PO; +TEMA30CA5 PO
--- NOTE | 2019-02-10 20:00 | NUR ---
PT BIBA C/O Right hip pain; denies fall- the patient came from [facility] Sent by PCP to [facility] . PT ALERT AND AWAKEM, NO ACUTE DISTRESS NOTED. WILL CONTINUE TO MONITOR
[2019-02-10] MEDS ORDERED: ACETAMINOPHEN 325 MG TABLET PO ONE (22:00)
[2019-02-10] MEDS ORDERED: ACETAMINOPHEN 325 MG TABLET ONE (22:06)
--- NOTE | 2019-02-10 22:36 | NUR ---
XRAY AT BEDSIDE
[2019-02-11] MEDS ORDERED: MORPHINE SULFATE INJ 4 MG/ML DISP.SYRIN ONE (00:28)
[2019-02-11] MEDS ORDERED: ONDANSETRON 4 MG TAB.RAPDIS ONE (00:28)
[2019-02-11] MEDS ORDERED: ONDANSETRON 4 MG TAB.RAPDIS SL ONE (00:30)
[2019-02-11] MEDS ORDERED: MORPHINE SULFATE INJ 2 MG/ML DISP.SYRIN IM ONE (00:30)
--- NOTE | 2019-02-11 00:40 | NUR ---
JOSEZ MATT [phone] [facility] # [id number]
--- NOTE | 2019-02-11 03:11 | NUR ---
AMBULANCE DELAYED UNTIL 329
--- NOTE | 2019-02-11 04:05 | NUR ---
TRANSPORT DELAYED. 0445 TRIMMER MACHINE OPERATOR.
[2019-02-11 04:42] VITALS: BP 118/69
--- NOTE | 2019-02-11 04:42 | NUR ---
REPORT GIVEN TO TYSHAWN
== END 2019-02-11 04:43 ==
LOC: ER 17:45
DX: M25.571 Pain in right ankle and joints of right foot (principal); G89.29 Other chronic pain; M25.551 Pain in right hip; G43.909 Migraine, unspecified, not intractable, without status migrainosus; I10 Essential (primary) hypertension; J44.9 Chronic obstructive pulmonary disease, unspecified; F32.9 Major depressive disorder, single episode, unspecified; F25.9 Schizoaffective disorder, unspecified; F17.200 Nicotine dependence, unspecified, uncomplicated; Z98.890 Other specified postprocedural states; Z88.0 Allergy status to penicillin; Z88.6 Allergy status to analgesic agent; Z88.8 Allergy status to other drugs, medicaments and biological substances; Z79.899 Other long term (current) drug therapy
CPT/HCPCS: 29515; 72170; 73501; 73590; 73610; 96372; 99284; J2270; Q0162

== ENCOUNTER 2019-11-18 12:38 | Emergency (ER) | payer MEDICARE, OTHER ==
[~2019-11-18] VITALS: Ht 185.4 cm; Wt 99.8 kg
--- NOTE | 2019-11-18 12:47 | NUR ---
PT REC'D TO ER C/O FELL RT KNEE ABSRION AND RT ANKLE PAIN AND BACK
[2019-11-18] MEDS ORDERED: HYDROMORPHONE INJ 2 MG/ML DISP.SYRIN ONE (13:09)
[2019-11-18] MEDS ORDERED: diphenhydrAMINE HCL 50 MG/ML VIAL ONE (13:10)
[2019-11-18] MEDS: diphenhydrAMINE HCL 50 MG/ML VIAL IM ONE (13:15)
[2019-11-18] MEDS: HYDROMORPHONE INJ 2 MG/ML DISP.SYRIN IM ONE (13:16)
--- NOTE | 2019-11-18 13:19 | NUR ---
PT GIVEN MEDS PER MD ORDER FOR BACK ABD KNEE PAIN
--- NOTE | 2019-11-18 13:58 | NUR ---
CALLED [facility] # [id number] WILL CALL US WHEN THEY HAVE DOOR 2 DOOR TRANSPORT.
--- NOTE | 2019-11-18 14:06 | NUR ---
LEATHA CHAVEZ LIVES IN [place] BL[place] Patient discharged to home in stable condition. Written and verbal after care instructions given. Patient verbalizes understanding of instruction.
[2019-11-18 14:07] VITALS: BP 122/74
== END 2019-11-18 14:08 | disposition home or self-care (01) ==
LOC: ER 12:45
DX: S39.012A Strain of muscle, fascia and tendon of lower back, initial encounter (principal); S80.211A Abrasion, right knee, initial encounter; G43.909 Migraine, unspecified, not intractable, without status migrainosus; I10 Essential (primary) hypertension; J44.9 Chronic obstructive pulmonary disease, unspecified; G89.4 Chronic pain syndrome; F25.9 Schizoaffective disorder, unspecified; F32.9 Major depressive disorder, single episode, unspecified; F17.200 Nicotine dependence, unspecified, uncomplicated; Z98.890 Other specified postprocedural states; Z88.0 Allergy status to penicillin; Z88.6 Allergy status to analgesic agent; Z88.8 Allergy status to other drugs, medicaments and biological substances; Z79.899 Other long term (current) drug therapy; W01.0XXA Fall on same level from slipping, tripping and stumbling without subsequent striking against object, initial encounter; Y93.89 Activity, other specified; Y92.89 Other specified places as the place of occurrence of the external cause; Y99.8 Other external cause status
CPT/HCPCS: 96372 ×2; 99284; J1170; J1200

== ENCOUNTER 2019-12-07 16:38 | Emergency (ER) | payer MEDICARE, OTHER ==
[~2019-12-07] VITALS: Ht 180.3 cm; Wt 79.4 kg
[2019-12-07] MEDS ORDERED: HYDROMORPHONE INJ 2 MG/ML DISP.SYRIN IM ONE (17:00)
[2019-12-07] MEDS ORDERED: diphenhydrAMINE HCL 50 MG/ML VIAL IM ONE (17:00)
[2019-12-07] MEDS ORDERED: diphenhydrAMINE HCL 50 MG/ML VIAL ONE (17:43)
[2019-12-07] MEDS ORDERED: HYDROMORPHONE INJ 2 MG/ML DISP.SYRIN ONE (17:44)
[2019-12-07 17:54] LABS: BASOPHILS % (AUTO) 0.7 % (0.0-2.0); EOSINOPHILS % (AUTO) 5.5 % (0.0-6.0); HEMATOCRIT 47 % (39-51); HEMOGLOBIN 15.5 g/dL (13.5-17.5); LYMPHOCYTES # (AUTO) 2.5 /CMM (0.8-4.8); LYMPHOCYTES % (AUTO) 42.6 % (20.0-44.0); MEAN CORPUSCULAR HGB CONC 33 g/dl (31.0-36.0); MEAN CORPUSCULAR VOLUME 91 fL (80-96); MONOCYTES # (AUTO) 0.8 /CMM (0.1-1.30); NEUTROPHILS # (AUTO) 2.2 /CMM (1.8-8.9); NEUTROPHILS % (AUTO) 38.2 % (43.0-81.0); PLATELET COUNT (AUTO) 179 /CMM (150-450); RED BLOOD CELL COUNT(AUTO) 5.15 MIL/uL (4.5-6.0); WHITE BLOOD COUNT (AUTO) 5.8 K/uL (4.3-11.0)
--- NOTE | 2019-12-07 17:55 | NUR ---
BIB RA C/O HIP PAIN AND SUICIDAL IDEATION. REQUESTING PSYCH PLACEMENT. PATIENT A/OX4, BREATHING EVEN AND UNLABORED, NO SOB NOTED. NEEDS ATTENDED, KEPT COMFORTABLE.
--- NOTE | 2019-12-07 18:00 | NUR ---
SECURITY AT BEDSIDE FOR WANDING.
--- NOTE | 2019-12-07 18:15 | NUR ---
COVID SWAB SENT.
[2019-12-07 18:21] LABS: ALANINE AMINOTRANSFERASE 27 U/L (12-78); ALBUMIN 3.5 g/dL (3.4-5.0); ALCOHOL, BLOOD < 3 mg/dL (0-0); ALKALINE PHOSPHATASE 69 U/L (46-116); ASPARTATE AMINOTRANSFERASE 29 U/L (15-37); BILIRUBIN,DIRECT 0.3 mg/dL (0.0-0.2); BILIRUBIN,TOTAL 0.9 mg/dL (0.2-1.0); CALCIUM, SERUM 9.1 mg/dL (8.5-10.1); CARBON DIOXIDE 28 mmol/L (21-32); CHLORIDE 103 mmol/L (98-107); CREATININE 0.9 mg/dL (0.6-1.3); GLUCOSE 102 mg/dL (74-106); POTASSIUM 3.2 mmol/L (3.5-5.1); SODIUM SERUM 140 mmol/L (136-145); TOTAL PROTEIN, SERUM 7.5 g/dL (6.4-8.2); UREA NITROGEN, BLOOD 13 mg/dL (7-18)
--- NOTE | 2019-12-07 18:38 | NUR ---
PATIENT STS HE'S NOT READY TO GIVE URINE AT THIS TIME.
[2019-12-07] MEDS ORDERED: POTASSIUM CHLORIDE 20 MEQ TAB.PRT.SR PO ONE (19:00)
--- NOTE | 2019-12-07 19:12 | NUR ---
ASKED PT TO PROVIDE URINE SAMPLE. URINE PROVIDED, SENT TO LAB.
--- NOTE | 2019-12-07 19:19 | NUR ---
ENDORSED TO EVAN DONNELLY FOR ELYSE.
[2019-12-07 19:54] LABS: APPEARANCE,URINE CLEAR (CLEAR); BILIRUBIN,URINE SMALL (NEGATIVE); BLOOD, URINE NEGATIVE Ery/uL (NEGATIVE); COLOR,URINE YELLOW (YELLOW); LEUKOCYTE ESTERASE ,URINE NEGATIVE (NEGATIVE); NITRITE, URINE NEGATIVE (NEGATIVE); PROTEIN,URINE TRACE mg/dl (NEGATIVE); UGLUCOSE NEGATIVE (NEGATIVE)
[2019-12-07 20:10] LABS: BACTERIA,URINE None seen /HPF (None Seen); MUCUS,URINE Rare /LPF (None Seen); RBC,URINE 0-2 /HPF (0-2); SQUAMOUS EPITHELIAL CELL,UR 0-2 /HPF (None Seen); WBC,URINE 0-2 /HPF (0-3)
--- NOTE | 2019-12-07 21:16 | NUR ---
FACESHEET AND CLINICALS FAXED TO [facility].
--- NOTE | 2019-12-07 22:25 | NUR ---
CALL FROM [facility]. PT ACCEPTED BY DR PEREIRA. UNIT 1. # FOR REPORT [phone]
--- NOTE | 2019-12-07 22:30 | NUR ---
Aneudy guzman in [facility] - 12/07/19 at 2231 by RABIA CALLED [facility] FOR AMBULANCE TRANSPORT TO [facility]. ETA 11
--- NOTE | 2019-12-07 22:31 | NUR ---
CALLED [facility] FOR TRANSPORT TO COUNTS INCLUDE 234 BEDS AT THE [facility]. ETA 2300.
[2019-12-07 22:44] VITALS: BP 132/73
--- NOTE | 2019-12-07 22:51 | NUR ---
REPORT GIVEN TO ADELE DONNELLY FOR ELYSE
--- NOTE | 2019-12-07 23:44 | NUR ---
PT TRANSFERED TO [facility].
== END 2019-12-07 23:46 ==
LOC: ER 16:47
DX: R45.851 Suicidal ideations (principal); F25.1 Schizoaffective disorder, depressive type; J44.9 Chronic obstructive pulmonary disease, unspecified; G89.4 Chronic pain syndrome; M25.552 Pain in left hip; M25.551 Pain in right hip; Z91.14 Patient's other noncompliance with medication regimen; H54.8 Legal blindness, as defined in USA; I10 Essential (primary) hypertension; Z88.6 Allergy status to analgesic agent; Z88.0 Allergy status to penicillin; Z88.8 Allergy status to other drugs, medicaments and biological substances; Z79.899 Other long term (current) drug therapy; E87.6 Hypokalemia; Z20.828 Contact with and (suspected) exposure to other viral communicable diseases; M25.571 Pain in right ankle and joints of right foot; F17.200 Nicotine dependence, unspecified, uncomplicated
CPT/HCPCS: 36415; 80048; 80076; 80299; 80307; 80320; 81001; 83735; 85025; 87426; 96372 ×2; 99285; J1170; J1200; 81000-TC; C9803; G0480

== ENCOUNTER 2021-04-10 09:46 | Emergency (ER) | payer MEDICARE, OTHER ==
[~2021-04-10] VITALS: Ht 190.5 cm; Wt 113.4 kg
--- NOTE | 2021-04-10 09:46 | NUR ---
PT BIBRA FROM THE STREET C/O R ANKLE PAIN AND SUICIDAL IDEATION. PT IS AAOX4, NOT IN RESPIRATORY DISTRESS, V/S STABLE, KEPT RESTED AND COMFORTABLE. WILL CONTINUE TO MONITOR. SITTER AT BEDSIDE FOR EVAL.
--- NOTE | 2021-04-10 10:20 | NUR ---
AT BEDSIDE FOR EVAL.
[2021-04-10] MEDS ORDERED: HYDROCODONE/APAP 10/325MG TABLET PO ONE (10:30)
--- NOTE | 2021-04-10 10:33 | NUR ---
ER PHLEB AT BEDSIDE FOR BLOOD DRAW.
[2021-04-10] MEDS ORDERED: HYDROCODONE/APAP 10/325MG TABLET ONE (10:34)
--- NOTE | 2021-04-10 10:35 | NUR ---
CHIEF OPERATOR SYNTHESIS AT BEDSIDE FOR XRAY.
[2021-04-10 10:55] LABS: BASOPHILS # (AUTO) 0.1 K/uL (0.0-0.2); BASOPHILS % (AUTO) 0.9 % (0.0-2.0); EOSINOPHILS % (AUTO) 2.2 % (0.0-6.0); HEMATOCRIT 45 % (39-51); HEMOGLOBIN 15.4 g/dL (13.5-17.5); LYMPHOCYTES # (AUTO) 2.5 K/uL (0.8-4.8); LYMPHOCYTES % (AUTO) 38.7 % (20.0-44.0); MEAN CORPUSCULAR HGB CONC 34 g/dl (31.0-36.0); MEAN CORPUSCULAR VOLUME 91 fL (80-96); MONOCYTES # (AUTO) 0.9 K/uL (0.1-1.30); MONOCYTES % (AUTO) 13.5 % (2.0-12.0); NEUTROPHILS # (AUTO) 2.9 K/uL (1.8-8.9); NEUTROPHILS % (AUTO) 44.7 % (43.0-81.0); PLATELET COUNT (AUTO) 202 K/uL (150-450); WHITE BLOOD COUNT (AUTO) 6.5 K/uL (4.3-11.0)
[2021-04-10 13:03] LABS: ALANINE AMINOTRANSFERASE 43 U/L (12-78); ALBUMIN 3.9 g/dL (3.4-5.0); ALKALINE PHOSPHATASE 72 U/L (46-116); ASPARTATE AMINOTRANSFERASE 39 U/L (15-37); BILIRUBIN,DIRECT 0.3 mg/dL (0.0-0.2); BILIRUBIN,TOTAL 0.9 mg/dL (0.2-1.0); CALCIUM, SERUM 9.5 mg/dL (8.5-10.1); CREATININE 0.9 mg/dL (0.6-1.3); GLUCOSE 81 mg/dL (74-106); TOTAL PROTEIN, SERUM 8.1 g/dL (6.4-8.2); UREA NITROGEN, BLOOD 9 mg/dL (7-18)
[2021-04-10 13:26] LABS: ALCOHOL, BLOOD < 3 mg/dL (0-0); CARBON DIOXIDE 28 mmol/L (21-32); CHLORIDE 100 mmol/L (98-107); POTASSIUM 3.2 mmol/L (3.5-5.1); SODIUM SERUM 138 mmol/L (136-145)
[2021-04-10 13:27] LABS: ACETAMINOPHEN 0 ug/ml (10-30)
[2021-04-10 13:40] LABS: BILIRUBIN,URINE NEGATIVE (NEGATIVE); COLOR,URINE YELLOW (YELLOW); LEUKOCYTE ESTERASE ,URINE NEGATIVE (NEGATIVE); NITRITE, URINE NEGATIVE (NEGATIVE); PH,URINE 6.5 (5.0-8.0); PROTEIN,URINE NEGATIVE (NEGATIVE); UGLUCOSE NEGATIVE (NEGATIVE)
[2021-04-10] MEDS ORDERED: POTASSIUM CHLORIDE 20 MEQ TAB.PRT.SR PO ONE ×2 (13:52→14:00)
[2021-04-10 14:05] LABS: BACTERIA,URINE None seen /HPF (None Seen); RBC,URINE 0-2 /HPF (0-2); SQUAMOUS EPITHELIAL CELL,UR None Seen /HPF (None Seen); WBC,URINE 0-2 /HPF (0-3)
--- NOTE | 2021-04-10 16:07 | NUR ---
ACCEPTED TO [facility] UNDER DR. CARLISLE CALL [phone] FOOD MOBILE DRIVER IS AT 1630 PER EVER.
[2021-04-10 16:08] VITALS: BP 135/77
--- NOTE | 2021-04-10 16:09 | NUR ---
REPORT GIVEN TO ANDRZEJ WYATT FOR ELYSE.
--- NOTE | 2021-04-10 17:15 | NUR ---
[facility] AT BEDSIDE FOR MANAGER LEASING.
== END 2021-04-10 17:16 ==
LOC: ER 09:48
DX: R45.851 Suicidal ideations (principal); F25.9 Schizoaffective disorder, unspecified; G89.4 Chronic pain syndrome; H54.8 Legal blindness, as defined in USA; G89.29 Other chronic pain; M25.571 Pain in right ankle and joints of right foot; I10 Essential (primary) hypertension; J44.9 Chronic obstructive pulmonary disease, unspecified; F17.200 Nicotine dependence, unspecified, uncomplicated; Z88.6 Allergy status to analgesic agent; Z88.0 Allergy status to penicillin; Z88.8 Allergy status to other drugs, medicaments and biological substances; Z20.822 Contact with and (suspected) exposure to COVID-19; M54.32 Sciatica, left side; M54.31 Sciatica, right side; F32.A Depression, unspecified
CPT/HCPCS: 36415; 73610-TC; 80048-TC; 80076-TC; 81001; 85025-TC; C9803; G0480

== ENCOUNTER 2021-08-13 11:05 | Inpatient (IN) | payer MEDICARE, OTHER ==
[~2021-08-13] VITALS: Ht 190.5 cm; Wt 111.6 kg
--- NOTE | 2021-08-13 11:17 | NUR ---
The patient bibra88, +SI "i want to run through traffic" had 2 syncopal episode today. The patient is alert and oriented x3. In room air and denies SOB. Respiration regular and unlabored. The patient is attached to the monitor. [facility] blanket provided for comfort. Will continue to monitor the patient.
[2021-08-13] MEDS ORDERED: IV NS 0.9% 1,000 ML BAG IV ONE (11:30)
--- NOTE | 2021-08-13 11:38 | NUR ---
COVID TEST COLLECTED AND SENT
[2021-08-13 13:30] LABS: BASOPHILS % (AUTO) 0.5 % (0.0-2.0); EOSINOPHILS % (AUTO) 5.6 % (0.0-6.0); HEMATOCRIT 43 % (39-51); HEMOGLOBIN 14.6 g/dL (13.5-17.5); LYMPHOCYTES # (AUTO) 1.7 K/uL (0.8-4.8); LYMPHOCYTES % (AUTO) 39.6 % (20.0-44.0); MEAN CORPUSCULAR HGB CONC 34 g/dl (31.0-36.0); MEAN CORPUSCULAR VOLUME 89 fL (80-96); MONOCYTES # (AUTO) 0.6 K/uL (0.1-1.30); MONOCYTES % (AUTO) 15.3 % (2.0-12.0); NEUTROPHILS # (AUTO) 1.6 K/uL (1.8-8.9); PLATELET COUNT (AUTO) 140 K/uL (150-450); RED BLOOD CELL COUNT(AUTO) 4.85 MIL/uL (4.5-6.0); WHITE BLOOD COUNT (AUTO) 4.2 K/uL (4.3-11.0)
[2021-08-13 13:56] LABS: ACETAMINOPHEN 0 ug/ml (10-30); ALANINE AMINOTRANSFERASE 23 U/L (12-78); ALBUMIN 3.3 g/dL (3.4-5.0); ALCOHOL, BLOOD < 3 mg/dL (0-0); ALKALINE PHOSPHATASE 61 U/L (46-116); ASPARTATE AMINOTRANSFERASE 21 U/L (15-37); BILIRUBIN,DIRECT 0.3 mg/dL (0.0-0.2); BILIRUBIN,TOTAL 0.7 mg/dL (0.2-1.0); CALCIUM, SERUM 8.6 mg/dL (8.5-10.1); CARBON DIOXIDE 25 mmol/L (21-32); CHLORIDE 107 mmol/L (98-107); CREATININE 0.6 mg/dL (0.6-1.3); GLUCOSE 83 mg/dL (74-106); POTASSIUM 3.1 mmol/L (3.5-5.1); SODIUM SERUM 142 mmol/L (136-145); TOTAL PROTEIN, SERUM 6.9 g/dL (6.4-8.2); UREA NITROGEN, BLOOD 7 mg/dL (7-18)
--- NOTE | 2021-08-13 14:25 | NUR ---
urine collected and sent to the lab
[2021-08-13 14:52] LABS: BILIRUBIN,URINE SMALL (NEGATIVE); COLOR,URINE YELLOW (YELLOW); LEUKOCYTE ESTERASE ,URINE NEGATIVE (NEGATIVE); NITRITE, URINE NEGATIVE (NEGATIVE); PROTEIN,URINE NEGATIVE (NEGATIVE); UGLUCOSE NEGATIVE (NEGATIVE)
--- NOTE | 2021-08-13 14:57 | NUR ---
Pt. is requesting psych admission to [facility]. Please fax clinicals once pt. is medically cleared [fax: [phone]].
[2021-08-13 15:02] LABS: BAND % (MANUAL) 1 % (0.0-5.0); EOSINOPHILS % (MANUAL) 2 % (0-4); LYMPHOCYTES % (MANUAL) 43 % (16-48); MONOCYTES % (MANUAL) 20 % (0-11.0); NEUTROPHILS % (MANUAL) 34 (42-76)
[2021-08-13 15:06] LABS: BACTERIA,URINE Rare /HPF (None Seen); RBC,URINE 0-2 /HPF (0-2); SQUAMOUS EPITHELIAL CELL,UR 0-2 /HPF (None Seen); WBC,URINE 0-2 /HPF (0-3)
--- NOTE | 2021-08-13 15:09 | NUR ---
LAB CALLED PT COVID + CHARGE NURSE GENER INFORMED.
--- NOTE | 2021-08-13 15:41 | NUR ---
PER DIEM INTERPRETER. AT BED SIDE
[2021-08-13] MEDS ORDERED: POTASSIUM CHLORIDE 20 MEQ TAB.PRT.SR PO ONE ×2 (16:00→21:05)
[2021-08-13] MEDS ORDERED: ACETAMINOPHEN 325 MG TABLET ONE (17:58)
[2021-08-13] MEDS ORDERED: ACETAMINOPHEN 325 MG TABLET PO ONE (18:00)
--- NOTE | 2021-08-13 19:11 | NUR ---
PATIENT REFUSED BLOOD WORKS
--- NOTE | 2021-08-13 21:09 | NUR ---
Aneudy guzman in [facility] - 08/13/21 at 2110 by KSENIA REPORT GIVEN TO
[2021-08-13] MEDS ORDERED: ACETAMINOPHEN 325 MG TABLET PO PRN (23:00)
[2021-08-13] MEDS ORDERED: ONDANSETRON HCL/PF 4 MG/2 ML VIAL IVP PRN (23:00)
[2021-08-13] MEDS ORDERED: Z GUARD REMEDY 4 OZ OINT TP PRN (23:00)
[2021-08-13] MEDS ORDERED: MAGNESIUM HYDROXIDE 30 ML UDC PO PRN (23:00)
[2021-08-13] MEDS ORDERED: ENOXAPARIN SODIUM 40 MG/0.4 ML DISP.SYRIN SQ ONE (23:26)
[2021-08-13] MEDS ORDERED: AZITHROMYCIN 500 MG VIAL ONE (23:27)
--- NOTE | 2021-08-13 23:31 | NUR ---
PATIENT REFUSED BLOOD DRAW
[2021-08-14] MEDS ORDERED: oxyCODONE IR immediate release 5 MG ONE ×2 (05:42→12:20)
[2021-08-14] MEDS: oxyCODONE IR immediate release 5 MG PO PRN ×3 (05:46→18:24)
[2021-08-14 08:02] LABS: ALBUMIN 3.1 g/dL (3.4-5.0); BILIRUBIN,TOTAL 0.6 mg/dL (0.2-1.0); CALCIUM, SERUM 8.7 mg/dL (8.5-10.1); CREATININE 0.6 mg/dL (0.6-1.3); MAGNESIUM 2.1 mg/dL (1.8-2.4); PHOSPHORUS 2.5 mg/dL (2.5-4.9); POTASSIUM 3.5 mmol/L (3.5-5.1); TOTAL PROTEIN, SERUM 6.8 g/dL (6.4-8.2)
[2021-08-14 08:03] LABS: BASOPHILS % (AUTO) 0.8 % (0.0-2.0); EOSINOPHILS % (AUTO) 7.6 % (0.0-6.0); HEMATOCRIT 46 % (39-51); HEMOGLOBIN 15.5 g/dL (13.5-17.5); LYMPHOCYTES # (AUTO) 1.1 K/uL (0.8-4.8); LYMPHOCYTES % (AUTO) 35.9 % (20.0-44.0); MEAN CORPUSCULAR HGB CONC 34 g/dl (31.0-36.0); MEAN CORPUSCULAR VOLUME 90 fL (80-96); MONOCYTES # (AUTO) 0.6 K/uL (0.1-1.30); MONOCYTES % (AUTO) 18.2 % (2.0-12.0); NEUTROPHILS # (AUTO) 1.2 K/uL (1.8-8.9); NEUTROPHILS % (AUTO) 37.5 % (43.0-81.0); PLATELET COUNT (AUTO) 135 K/uL (150-450); RED BLOOD CELL COUNT(AUTO) 5.13 MIL/uL (4.5-6.0); WHITE BLOOD COUNT (AUTO) 3.1 K/uL (4.3-11.0)
[2021-08-14 08:10] LABS: THYROID STIMULATING HORMONE 0.984 uIU/mL (0.358-3.74)
[2021-08-14] MEDS ORDERED: DEXAMETHASONE SOD PHOSPHATE 4 MG/ML VIAL IV SCH (09:00)
[2021-08-14] MEDS ORDERED: DIVALPROEX SODIUM 500 MG TABLET.DR PO ONE (09:20)
[2021-08-14] MEDS ORDERED: DEXAMETHASONE SOD PHOSPHATE 10 MG/ML VIAL ONE (09:20)
[2021-08-14] MEDS ORDERED: ALPRAZOLAM 0.5 MG TABLET ONE (09:20)
[2021-08-14] MEDS ORDERED: PANTOPRAZOLE 40 MG TABLET.DR PO ONE (09:21)
[2021-08-14] MEDS ORDERED: AMLODIPINE BESYLATE 10 MG TABLET ONE (09:21)
[2021-08-14] MEDS ORDERED: ASPIRIN 81 MG TAB.CHEW ONE (09:21)
[2021-08-14] MEDS: PANTOPRAZOLE 40 MG TABLET.DR PO SCH (09:25)
[2021-08-14] MEDS: ASPIRIN 81 MG TAB.CHEW PO SCH (09:28)
[2021-08-14] MEDS: ALPRAZOLAM 1 MG TABLET PO SCH ×2 (09:28→20:09)
[2021-08-14] MEDS: DIVALPROEX SODIUM 500 MG TABLET.DR PO SCH (09:28)
[2021-08-14] MEDS: AMLODIPINE BESYLATE 5 MG TABLET PO SCH (09:33)
[2021-08-14] MEDS ORDERED: hydrOXYzine PAMOATE 25 MG CAPSULE PO PRN (11:00)
[2021-08-14 11:05] LABS: BAND % (MANUAL) 1 % (0.0-5.0); EOSINOPHILS % (MANUAL) 9 % (0-4); LYMPHOCYTES % (MANUAL) 38 % (16-48); MONOCYTES % (MANUAL) 18 % (0-11.0); NEUTROPHILS % (MANUAL) 34 (42-76)
--- NOTE | 2021-08-14 15:42 | NUR ---
NURSING SUP GAVE TELE BED 108.
--- NOTE | 2021-08-14 16:09 | NUR ---
REPORT GIVEN TO GREY DONNELLY FOR ELYSE
--- NOTE | 2021-08-14 18:00 | NUR ---
TELE OPENING NOTE RECEIVED PATIENT FROM ER VIA GURNEY ACCOMPANIED BY TWO ER STAFF. INITIAL ASSESSMENT DONE AND DOCUMENTED PER PROTOCOL. NO SKIN ISSUES NOTED. CURRENTLY ON AIR. INITIAL VITAL SIGNS: T 98.7, RR 18, O2 SAT 94%, HR 56, BP 123/74. PATIENT VERBALIZES PAIN IN NECK WHOLE BODY. OXYCODONE GIVEN ORDERED. ALPRAZOLAM NOT GIVEN OXYCODONE WAS JUST GIVEN. WILL CONTINUE TO MONITOR.
--- NOTE | 2021-08-14 18:19 | NUR ---
transferred patient to [facility] in no distress.
--- NOTE | 2021-08-14 19:07 | NUR ---
RN CLOSING NOTE PATIENT REMAINED STABLE THROUGHOUT SHIFT. IV ON RIGHT ARM INTACT AND PATENT. PATIENT STATES SUICIDAL IDEATION, CHARGE NURSE INFORMED. SUICIDE PRECAUTION IN PLACE. WILL ENDORSE TO GROCERY SPECIALIST NURSE.
--- NOTE | 2021-08-14 19:20 | NUR ---
RN NOTE RECEIVED PATIENT IN BED, AO X 4, IN NO ACUTE DISTRESS AT THIS TIME, LEGALLY BLIND. RESPIRATION UNLABORED, SATURATION AT 95 ON ROOM AIR%, SR ON THE MONITOR, HR IS 68. IV LINE AT JASON 20G PATENT AND FLUSHING WELL, NO S/S OF INFECTION OR INFILTRATION. PATIENT CONTINENT AND USES URINAL. SAFETY MEASURES IMPLEMENTED. PATIENT BED ALARM IS ON. HEAD OF BED ELEVATED. BED IS LOCKED, IN LOWEST POSITION AND SIDE RAILS UP. CALL LIGHT WITHIN REACH OF THE PATIENT. WILL CONTINUE TO MONITOR AND REASSESS FOR ANY CHANGES.
[2021-08-14 20:00] VITALS: BP 128/75
[2021-08-14] MEDS: AZITHROMYCIN 500 MG in IV D5W 250 ML IV SCH ×3 (21:38)
[2021-08-14] MEDS: ENOXAPARIN SODIUM 40 MG/0.4 ML DISP.SYRIN SQ SCH ×2 (21:40)
[2021-08-14] MEDS: QUETIAPINE FUMARATE 100 MG TABLET PO SCH (21:45)
[2021-08-14] MEDS ORDERED: TEMAZEPAM 15 MG CAPSULE PO PRN (22:00)
[2021-08-15] VITALS: BP 127/76
[2021-08-15 04:00] VITALS: BP 119/69
--- NOTE | 2021-08-15 07:30 | NUR ---
RN NOTE RECEIVED PATIENT REPORT FROM NIGHTSHIFT RN. PATIENT ASLEEP IN BED, IN NO ACUTE DISTRESS AT THIS TIME, LEGALLY BLIND. RESPIRATION UNLABORED, OXYGEN SATURATION AT 95% ON ROOM AIR, SINUS RHYTHM ON THE MONITOR, HR IS 68. IV LINE AT RIGHT UPPER ARM 20 GAUGE PATENT AND FLUSHING WELL, NO SIGNS OR SYMPTOMS OF INFECTION OR INFILTRATION. PATIENT CONTINENT AND USES URINAL. SAFETY MEASURES IMPLEMENTED. PATIENT BED ALARM IS ON. HEAD OF BED ELEVATED. BED IS LOCKED, IN LOWEST POSITION AND SIDE RAILS UP. CALL LIGHT WITHIN REACH OF THE PATIENT. 1:1 SITTER AT THE BEDSIDE. WILL CONTINUE PLAN OF CARE AND ANTICIPATE NEEDS.
[2021-08-15 08:00] VITALS: BP 109/64
[2021-08-15] MEDS: ALPRAZOLAM 1 MG TABLET PO SCH ×2 (08:20→16:04)
[2021-08-15] MEDS: PANTOPRAZOLE 40 MG TABLET.DR PO SCH (08:20)
[2021-08-15] MEDS: ASPIRIN 81 MG TAB.CHEW PO SCH (08:20)
[2021-08-15] MEDS: DIVALPROEX SODIUM 500 MG TABLET.DR PO SCH (08:21)
[2021-08-15] MEDS: AMLODIPINE BESYLATE 5 MG TABLET PO SCH (08:35)
[2021-08-15] MEDS: oxyCODONE IR immediate release 5 MG PO PRN ×3 (08:43→22:33)
[2021-08-15 12:00] VITALS: BP 111/66
--- NOTE | 2021-08-15 14:51 | NUR ---
Awaiting for MD medical clearance note. Once the note is in, please fax clinicals to [facility] [fax: [phone], tele: [phone]]. Pt. is usually a known pt. from [facility], but they do not take COVID+ patients. [facility] takes COVID+ patients.
[2021-08-15 16:00] VITALS: BP 123/69
--- NOTE | 2021-08-15 18:38 | NUR ---
RN NOTE PATIENT REMAINS IN ROOM ASLEEP IN BED, IN NO ACUTE DISTRESS AT THIS TIME. PATIENT SLEPT THROUGHOUT SHIFT BUT IS AROUSABLE TO NAME. LEGALLY BLIND. RESPIRATION UNLABORED, OXYGEN SATURATION STAYED ABOVE 95% THROUGHOUT SHIFT ON ROOM AIR. SINUS RHYTHM ON THE MONITOR, HR IS 70. IV LINE AT RIGHT UPPER ARM 20 GAUGE PATENT AND FLUSHING WELL, NO SIGNS OR SYMPTOMS OF INFECTION OR INFILTRATION. PATIENT CONTINENT AND USES URINAL. SAFETY MEASURES IMPLEMENTED. PATIENT BED ALARM IS ON. HEAD OF BED ELEVATED. BED IS LOCKED, IN LOWEST POSITION AND SIDE RAILS UP. CALL LIGHT WITHIN REACH OF THE PATIENT. 1:1 SITTER AT THE BEDSIDE. ALL DUE MEDICATIONS GIVEN, KEPT CLEAN AND DRY THROUGHOUT SHIFT. WILL ENDORSE TO NIGHTSHIFT RN FOR CONTINUATION OF CARE.
[2021-08-15 20:00] VITALS: BP 111/70
--- NOTE | 2021-08-15 20:30 | NUR ---
security coordinator Opening Note Pt received in bed, awake, A&O x4, calm, cooperative. Pt noted to be legally blind; made my presence known by introducing self. Pt is on RA with O2sat of 97%, no s/s of resp distress, no SOB or cough, non-labored and equal breathing. Pt attached to external monitor, SR with HR of 71. IV access on URA 20G, intact and patent, flushes easily with no resistance. Pt able to use urinal for voids and is able to ambulate with assist for BMs. Bed in lowest position, call light within reach, side rails up x2. WIll continue to monitor throughout the night.
[2021-08-15] MEDS: HYDROMORPHONE INJ 2 MG/ML DISP.SYRIN IV PRN (20:34)
[2021-08-15] MEDS: ENOXAPARIN SODIUM 40 MG/0.4 ML DISP.SYRIN SQ SCH (20:36)
--- NOTE | 2021-08-15 20:42 | NUR ---
RN Note Pt reports of 9/10 neck pain and requests for pain medicine.
--- NOTE | 2021-08-15 20:45 | NUR ---
RN Note Pt did not want the hydromorphone. Hydromorphone wasted appropriately.
[2021-08-15] MEDS: AZITHROMYCIN 500 MG in IV D5W 250 ML IV SCH (20:47)
[2021-08-15] MEDS: QUETIAPINE FUMARATE 100 MG TABLET PO SCH (22:33)
--- NOTE | 2021-08-15 22:34 | NUR ---
RN Note Pt complains of 9/10 neck pain and requests oxycodone. Pt administered oxycodone 20 mg. Will monitor for effectiveness.
[2021-08-16] VITALS: BP 110/65
[2021-08-16 04:00] VITALS: BP 119/74
--- NOTE | 2021-08-16 06:47 | NUR ---
turbine attendant CLosing Note Pt remains in bed, asleep but easily arousable, slept well throughout the night, A&O x4, calm, cooperative. Remains on RA with O2sat ranging from 94%-99%; pt showed no s/s of resp distress, no SOB or cough, non-labored and equal breathing. Attached to external monitor, SR throughout the night with HR ranging from 61-78. JASON 20G intact and patent, flushes easily with no resistance. INfused azithromycin at 0100 this morning. All due meds administered during the night. Bed in lowest position, call light within reach, side rails up x2. Will endorse to dayshift nurse to continue care.
--- NOTE | 2021-08-16 07:20 | NUR ---
RN open note Patient is in bed , sleeping at room air , so sighs of distress, sitter at the bed side .Bed is at lowest position , bed side rails are up, call light within reach , will continue to fallow POC
[2021-08-16 08:00] VITALS: BP 129/79
[2021-08-16] MEDS: ASPIRIN 81 MG TAB.CHEW PO SCH (08:16)
[2021-08-16] MEDS: PANTOPRAZOLE 40 MG TABLET.DR PO SCH (08:17)
[2021-08-16] MEDS: AMLODIPINE BESYLATE 5 MG TABLET PO SCH (08:17)
[2021-08-16] MEDS: DIVALPROEX SODIUM 500 MG TABLET.DR PO SCH (08:17)
[2021-08-16] MEDS: ALPRAZOLAM 1 MG TABLET PO SCH ×2 (08:17→16:48)
[2021-08-16] MEDS: oxyCODONE IR immediate release 5 MG PO PRN (08:24)
[2021-08-16 13:48] VITALS: BP 119/62
[2021-08-16 16:00] VITALS: BP 135/70
--- NOTE | 2021-08-16 18:26 | NUR ---
RN closing note Pt is in in bed, awake, A&O x4, calm, cooperative. Patient is legally blind; Pt is on RA with O2sat of 97%, no s/s of resp distress, no SOB or cough, non-labored and equal breathing. Pt attached to external monitor, SR with HR of 78. IV access on URA 20G, intact and patent, flushes easily with no resistance. Pt able to use urinal for voids and is able to ambulate with assist for BMs. Bed in lowest position, call light within reach, side rails up x2. call light within reach.
--- NOTE | 2021-08-16 19:30 | NUR ---
RN NOTE RECEIVED PATIENT IN BED, SLEEPING, EASILY AROUSABLE TO NAME AND TOUCH. ALERT AND ORIENTED. BREATHING EVEN AND UNLABORED. ON ROOM AIR. TOLERATING WELL. DENIES CHEST PAIN. SKIN WARM AND DRY. RIGHT AC 20G PIV INTACT, NO IVF INFUSING. PATIENT STATES HE IS BLIND. ASSISTED PATIENT WITH TURNING AND REPOSITIONING. PROVIDED FLUIDS FOR HYDRATION. ALL NEEDS ATTENDED. BED LOW, IN LOCKED POSITION. WILL CONTINUE TO MONITOR.
[2021-08-16 20:00] VITALS: BP 109/71
[2021-08-16] MEDS: QUETIAPINE FUMARATE 100 MG TABLET PO SCH (21:00)
[2021-08-16] MEDS: ENOXAPARIN SODIUM 40 MG/0.4 ML DISP.SYRIN SQ SCH (21:03)
[2021-08-16] MEDS: HYDROMORPHONE INJ 2 MG/ML DISP.SYRIN IV PRN (21:04)
[2021-08-17] MEDS: oxyCODONE IR immediate release 5 MG PO PRN ×4 (02:28→21:15)
[2021-08-17 04:00] VITALS: BP 120/75
--- NOTE | 2021-08-17 07:00 | NUR ---
MS RN OPENING NOTE PATIENT LAYING IN BED, A/O X 4, ABLE TO MAKE NEEDS KNOWN. TOLERATING WELL ON ROOM AIR WITH NO S/S RESPIRATORY DISTRESS. NO COMPLAINTS OF PAIN OR DISCOMFORT AT THIS TIME. R AC # 20 G SL CLEAN, INTACT, AND FLUSHING WELL. SAFETY MEASURES IN PLACE: BED IN LOWEST LOCKED POSITION, SIDE RAILS UP X 2, CALL LIGHT WITHIN REACH. WILL CONTINUE TO MONITOR.
[2021-08-17] MEDS: PANTOPRAZOLE 40 MG TABLET.DR PO SCH (07:42)
[2021-08-17 08:00] VITALS: BP 116/66
[2021-08-17] MEDS: ASPIRIN 81 MG TAB.CHEW PO SCH (08:56)
[2021-08-17] MEDS: ALPRAZOLAM 1 MG TABLET PO SCH ×3 (08:56→17:00)
[2021-08-17] MEDS: AMLODIPINE BESYLATE 5 MG TABLET PO SCH (08:57)
[2021-08-17] MEDS: DIVALPROEX SODIUM 500 MG TABLET.DR PO SCH (09:04)
[2021-08-17] MEDS: HYDROMORPHONE INJ 2 MG/ML DISP.SYRIN IV PRN (11:28)
[2021-08-17 16:00] VITALS: BP 106/71
--- NOTE | 2021-08-17 19:49 | NUR ---
MS RN OPENING NOTE RECEIVED PATIENT IN BED AWAKE, A/O X4, IN RA TOLERATING WELL WITH NO S/SX OF ACUTE DISTRESS AT THIS TIME. LEGALLY BLIND. RESPIRATION EVEN AND UNLABORED. IV ACCESS ON RIGHT AC #20G PATENT AND FLUSHING WELL, NO SIGNS OR SYMPTOMS OF INFECTION OR INFILTRATION. PATIENT CONTINENT AND USES URINAL. SAFETY MEASURES IMPLEMENTED. PATIENT BED ALARM IS ON. HEAD OF BED ELEVATED.CALL LIGHT WITHIN REACH, BED IN LOWEST AND LOCKED POSITION, WILL CONTINUE TO MONITOR.
[2021-08-17] MEDS: QUETIAPINE FUMARATE 100 MG TABLET PO SCH (21:14)
[2021-08-17] MEDS: ENOXAPARIN SODIUM 40 MG/0.4 ML DISP.SYRIN SQ SCH (21:29)
[2021-08-18] VITALS: BP 111/59
--- NOTE | 2021-08-18 07:25 | NUR ---
MS RN CLOSING NOTE PATIENT REMAINS IN BED AWAKE, A/O X3, IN RA TOLERATING WELL WITH NO S/SX OF ACUTE DISTRESS AT THIS TIME. LEGALLY BLIND. RESPIRATION EVEN AND UNLABORED. IV ACCESS ON RIGHT AC #20G PATENT AND FLUSHING WELL, NO SIGNS OR SYMPTOMS OF INFECTION OR INFILTRATION. PATIENT CONTINENT AND USES URINAL. ALL DUE MEDS GIVEN, SAFETY MEASURES IMPLEMENTED. PATIENT BED ALARM IS ON. HEAD OF BED ELEVATED.CALL LIGHT WITHIN REACH, BED IN LOWEST AND LOCKED POSITION, WILL ENDORSE TO AM SHIFT NURSE.
--- NOTE | 2021-08-18 07:32 | NUR ---
MS RN OPENING NOTE PATIENT IN BED AWAKE. ALERT AND ORIENTED X4. PATIENT ON ROOM AIR WITH NO S/S OF ACUTE DISTRESS. PATIENT IS LEGALLY BLIND. SKIN IS INTACT.PATIENT IS FALL RISK. PATIENT HAS RIGHT AC 20 GAUGE. PATIENT IS COMPLAINING OF PAIN IN LOWER LEGS. PATIENT HAS ORDER OF OXYCODONE. PATIENT USES URINAL. SAFETY MEASURES IN PLACE. PATIENT BED ALARM ON. HEAD OF BED ELEVATED.CALL LIGHT WITHIN REACH. BED LOCKED AND IN LOWEST POSITION. BEDSIDE TABLE WITHIN PATIENT REACH.WILL CONTINUE TO ASSESS THROUGHOUT OF SHIFT.
[2021-08-18 08:00] VITALS: BP 142/78
[2021-08-18] MEDS: ASPIRIN 81 MG TAB.CHEW PO SCH (08:02)
[2021-08-18] MEDS: PANTOPRAZOLE 40 MG TABLET.DR PO SCH (08:02)
[2021-08-18 08:03] VITALS: BP 142/78
[2021-08-18] MEDS: AMLODIPINE BESYLATE 5 MG TABLET PO SCH (08:03)
[2021-08-18] MEDS: oxyCODONE IR immediate release 5 MG PO PRN (08:05)
[2021-08-18] MEDS: DIVALPROEX SODIUM 500 MG TABLET.DR PO SCH (08:12)
[2021-08-18] MEDS: ALPRAZOLAM 1 MG TABLET PO SCH (09:00)
--- NOTE | 2021-08-18 09:10 | NUR ---
CALLED PHARMACY TO CLARIFY HOW LONG TO WAIT BEFORE GIVING XANAX AFTER ADMINSTERING OXYCODONE. PHARMACY SAID TO WAIT AT LEAST 6 HOURS BEFORE GIVING XANAX.
--- NOTE | 2021-08-18 09:12 | NUR ---
PATIENT STILL COMPLAINING OF PAIN. NOTIFIED DR. KERNS. WILL FOLLOW UP
--- NOTE | 2021-08-18 10:16 | NUR ---
pending discharge, waiting for negative test Addendum: 08/18/21 at 1028 by PAULA GILES RN DROPPED OFF COVID-19 ANTIGEN SAMPLE TO LAB
--- NOTE | 2021-08-18 10:17 | NUR ---
followed up with Dr. Badillo about discharge
--- NOTE | 2021-08-18 10:38 | NUR ---
PATIENT STILL COMPLAINING OF PAIN IN LOWER LEGS. TOO EARLY TO GIVE OXYCODONE. PROVIDED TEACHING ON CHANGING POSITIONS, LISTENING TO MUSIC FOR PAIN RELIEF. PATIENT SAID IT DOESN'T HELP Addendum: 08/18/21 at 1044 by PAULA GILES RN PATIENT ASKED FOR DILAUDID. EDUCATED PATIENT THAT THIS MEDICATION WAS DISCONTINUED PER MD ORDER.PATIENT VERBALIZED UNDERSTANDING.
--- NOTE | 2021-08-18 10:49 | NUR ---
Pt.'s COVID results came back as negative. F[facility]ed clinicals to [facility] [fax: [phone], tele: [phone]].
--- NOTE | 2021-08-18 11:32 | NUR ---
RN NOTE PATIENT IS LEGALLY BLIND. HAS URINAL AT BEDSIDE. REFUSES TO USE URINAL. PATIENT IS FALL RISK AND HAS BED ALARM ON.EDUCATED PATIENT TO USE THE CALL LIGHT FOR ASSISTANCE Addendum: 08/18/21 at 1241 by PAULA GILES RN REINFORCED TEACHING TO PATIENT TO CALL FOR ASSISTANCE TO BATHROOM. BED ALARM ON.
--- NOTE | 2021-08-18 12:39 | NUR ---
Pt. accepted to [facility] under Dr. Nick. Number to report: [phone], unit 2. notified [facility] Kemp to set up transportation.
--- NOTE | 2021-08-18 14:00 | NUR ---
rn note removed IV
--- NOTE | 2021-08-18 14:25 | NUR ---
rn note gave report to Alli at [facility] Nmia Lan
--- NOTE | 2021-08-18 15:32 | NUR ---
EMT picked up patient and transferred to [facility]
== END 2021-08-18 15:00 | DRG 178 ==
LOC: ER 11:06 → TRANSITION 22:19 → TELE 08-14 01:36 → TRANSITION 08-14 02:42 → TELE-TD 08-14 15:52 → TELE1 08-14 23:53 → MEDSG1 08-16 08:34
PROVIDERS: ADMIT Nurse Practitioner Acute Care; ATTEND Internal Medicine
DX: U07.1 COVID-19 (principal); R45.851 Suicidal ideations; D69.6 Thrombocytopenia, unspecified; E87.6 Hypokalemia; G89.4 Chronic pain syndrome; G43.909 Migraine, unspecified, not intractable, without status migrainosus; J44.9 Chronic obstructive pulmonary disease, unspecified; H54.8 Legal blindness, as defined in USA; Z96.642 Presence of left artificial hip joint; Z98.890 Other specified postprocedural states; Z88.0 Allergy status to penicillin; Z88.8 Allergy status to other drugs, medicaments and biological substances; Z79.899 Other long term (current) drug therapy; F17.200 Nicotine dependence, unspecified, uncomplicated; I10 Essential (primary) hypertension; I25.10 Atherosclerotic heart disease of native coronary artery without angina pectoris; F25.1 Schizoaffective disorder, depressive type
CPT/HCPCS: 36415; 71045-TC; 80048-TC; 80053-TC; 80061-TC; 80076-TC; 81001; 83735-TC; 84100-TC; 84443-TC; 84484-TC; 85025-TC; 85378-TC; 86140-TC; 87081-TC; C9803; G0378; G0480; J0456; J1100; J1170; J1650; J2405; J7030; J7050; J7060